=== PATIENT | female | born 1980 | race African-American/Black ===

== ENCOUNTER 2020-11-09 10:34 | Emergency (ER) | payer SELFPAY ==
[~2020-11-09] VITALS: Ht 162.6 cm; Wt 61.2 kg
[2020-11-09] MEDS ORDERED: QUEtiapine 200mg tab ORAL SCH (10:45)
[2020-11-09] MEDS ORDERED: Haloperidol 5mg/ml Inj IM ONE (11:15)
[2020-11-09] MEDS ORDERED: LORazepam Inj 2mg/ml 1ml IM ONE (11:15)
--- NOTE | 2020-11-09 11:19 | Emergency Room Report ---
History of Present Illness General Chief Complaint: Behavioral Complaint Present Illness HPI 41-year-old female brought in for psychiatric evaluation. Patient was on the street holding a fluorescent bulb swinging it at passersby. Patient is upset rambling "my is a crack it and keeps stealing my Seroquel." Patient says that she normally takes Seroquel but has not taken it in several weeks. At this time denies any drugs or alcohol and has no other complaints at this time. Allergies: Coded Allergies: UNABLE TO ASSESS (Unverified , 11/09/20) pt behavoiral COVID-19 Screening Contact w/high risk pt: No Experienced COVID-19 symptoms?: No COVID-19 Testing performed FOREPART REDUCER: No Patient History Last Menstrual Period: unk Now: No Review of Systems All Other Systems: negative except mentioned in HPI Physical Exam Vital Signs Date Time Temp Pulse Resp B/P (MAP) Pulse Ox O2 Delivery O2 Flow Rate FiO2 11/09/20 10:26 98.4 86 16 132/78 (96) 99 Room Air Sp02 EP Interpretation: reviewed, normal General Appearance: no apparent distress, alert, non-toxic Head: normocephalic, atraumatic Eyes: bilateral eye normal inspection, bilateral eye PERRL ENT: hearing grossly normal, normal pharynx, no angioedema, normal voice Neck: full range of motion, supple/symm/no masses Respiratory: chest non-tender, lungs clear, normal breath sounds, speaking full sentences Cardiovascular #1: regular rate, rhythm, no edema Cardiovascular #2: 2+ carotid (R), 2+ carotid (L), 2+ radial (R), 2+ radial (L), 2+ dorsalis pedis (R), 2+ dorsalis pedis (L) Gastrointestinal: normal bowel sounds, non tender, soft, non-distended, no guarding, no rebound Rectal: deferred Genitourinary: normal inspection, no CVA tenderness Musculoskeletal: back normal, normal range of motion, gait/station normal, non- tender Neurologic: alert, motor strength/tone normal, oriented x3, sensory intact, responsive, speech normal Psychiatric: other - Anxious appearing, rambling but is redirectable and answers questions appropriately Lymphatic: no adenopathy Medical Decision Making Diagnostic Impression: Primary Impression: Behavioral disorder Additional Impression: Amphetamine abuse ER Course Laboratory Tests Test 11/09/20 12:25 White Blood Count 10.0 K/UL (4.8-10.8) Red Blood Count 5.45 M/UL (4.20-5.40) H Hemoglobin 14.7 G/DL (12.0-16.0) Hematocrit 47.2 % (37.0-47.0) H Mean Corpuscular Volume 87 FL (80-99) Mean Corpuscular Hemoglobin 27.0 PG (27.0-31.0) Mean Corpuscular Hemoglobin Concent 31.1 G/DL (32.0-36.0) L Red Cell Distribution Width 12.7 % (11.6-14.8) Platelet Count 342 K/UL (150-450) Mean Platelet Volume 6.7 FL (6.5-10.1) Neutrophils (%) (Auto) 70.4 % (45.0-75.0) Lymphocytes (%) (Auto) 19.0 % (20.0-45.0) L Monocytes (%) (Auto) 9.1 % (1.0-10.0) Eosinophils (%) (Auto) 0.1 % (0.0-3.0) Basophils (%) (Auto) 1.3 % (0.0-2.0) Sodium Level 143 MMOL/L (136-145) Potassium Level 3.9 MMOL/L (3.5-5.1) Chloride Level 100 MMOL/L (98-107) Carbon Dioxide Level 16 MMOL/L (21-32) L Anion Gap 27 mmol/L (5-15) H Blood Urea Nitrogen 31 mg/dL (7-18) H Creatinine 1.2 MG/DL (0.55-1.30) Estimated Glomerular Filtration Rate > 60 mL/min (>60) Glucose Level 52 MG/DL (74-106) L Calcium Level 10.9 MG/DL (8.5-10.1) H Total Bilirubin 0.9 MG/DL (0.2-1.0) Aspartate Amino Transferase (AST) 48 U/L (15-37) H Alanine Aminotransferase (ALT) 45 U/L (12-78) Alkaline Phosphatase 101 U/L (46-116) Total Protein 10.9 G/DL (6.4-8.2) H Albumin 5.0 G/DL (3.4-5.0) Globulin 5.9 g/dL Albumin/Globulin Ratio 0.8 (1.0-2.7) L Salicylates Level 2.4 ug/mL (2.8-20) L Urine Opiates Screen Negative (NEGATIVE) Acetaminophen Level < 2 MCG/ML (10-30) L Urine Barbiturates Screen Negative (NEGATIVE) Phencyclidine (PCP) Screen Negative (NEGATIVE) Urine Amphetamines Screen Positive (NEGATIVE) H Urine Benzodiazepines Screen Negative (NEGATIVE) Urine Cocaine Screen Negative (NEGATIVE) Urine Marijuana (THC) Screen Negative (NEGATIVE) Serum Alcohol < 3 mg/dL 41-year-old female here with psychotic behavior. Patient was acting erratically and screaming obscenities at staff in the emergency department. She threatened to kill multiple nurses. Placed on 5150 hold by police. She was given Haldol and Ativan intramuscular injection and was resting soundly throughout the rest of her stay in the emergency department. Drug screen positive for amphetamines. Awaiting psychiatric clearance for possible placement. Last Vital Signs Date Time Temp Pulse Resp B/P (MAP) Pulse Ox O2 Delivery O2 Flow Rate FiO2 11/09/20 10:37 86 16 Room Air 11/09/20 10:26 98.4 132/78 (96) 99 Duane Bell M.D. Nov 09, 2020 11:19
[2020-11-09 12:48] LABS: BASOPHILS % (AUTO) 1.3 % (0.0-2.0); EOSINOPHILS % (AUTO) 0.1 % (0.0-3.0); HEMATOCRIT 47.2 % (37.0-47.0); HEMOGLOBIN 14.7 G/DL (12.0-16.0); MEAN CORPUSCULAR VOLUME 87 FL (80-99); MONOCYTES % (AUTO) 9.1 % (1.0-10.0); NEUTROPHILS % (AUTO) 70.4 % (45.0-75.0); PLATELET COUNT 342 K/UL (150-450); RED BLOOD COUNT 5.45 M/UL (4.20-5.40); RED CELL DISTRIBUTION WIDTH 12.7 % (11.6-14.8)
[2020-11-09 12:58] LABS: ANION GAP 27 mmol/L (5-15); BLOOD UREA NITROGEN 31 mg/dL (7-18); CALCIUM 10.9 MG/DL (8.5-10.1); CARBON DIOXIDE 16 MMOL/L (21-32); CHLORIDE 100 MMOL/L (98-107); CREATININE 1.2 MG/DL (0.55-1.30); POTASSIUM 3.9 MMOL/L (3.5-5.1); SODIUM 143 MMOL/L (136-145)
[2020-11-09 13:02] LABS: ALANINE AMINOTRANSFERASE 45 U/L (12-78); ALBUMIN/GLOBULIN RATIO 0.8 (1.0-2.7); ALKALINE PHOSPHATASE 101 U/L (46-116); ASPARTATE AMINO TRANSFERASE 48 U/L (15-37); BILIRUBIN,TOTAL 0.9 MG/DL (0.2-1.0)
[2020-11-09 13:25] VITALS: BP 100/60
[2020-11-09 15:15] VITALS: BP 114/65
[2020-11-09 17:09] LABS: APPEARANCE,URINE SLIGHTLY CLOUDY; BILIRUBIN, URINE NEGATIVE (NEGATIVE); COLOR,URINE PALE YELLOW; GLUCOSE, URINE (UA) NEGATIVE (NEGATIVE); KETONES,URINE 4+ (NEGATIVE); LEUKOCYTE ESTERASE ,URINE NEGATIVE (NEGATIVE); NITRITE,URINE NEGATIVE (NEGATIVE); PH,URINE 5 (4.5-8.0); PROTEIN,URINE 2+ (NEGATIVE); UROBILINOGEN,URINE NORMAL MG/DL (0.0-1.0)
[2020-11-09 18:39] VITALS: BP 102/68
[2020-11-09 19:46] VITALS: BP 112/68
[2020-11-09] MEDS ORDERED: cefTRIAXone 1 GM in NS 55 ML IVPB ONE (21:15)
[2020-11-09 21:19] VITALS: BP 115/72
[2020-11-09 23:52] VITALS: BP 115/73
[2020-11-10 01:16] VITALS: BP 118/76
[2020-11-10 03:52] VITALS: BP 116/75
[2020-11-10 06:42] VITALS: BP 125/76
[2020-11-10 07:34] VITALS: BP 113/75
[2020-11-10 11:30] VITALS: BP 109/73
[2020-11-10] MEDS ORDERED: NITROFURANTOIN100 M2 ORAL (14:35)
[2020-11-10] MEDS ORDERED: QUETIAPINE FUM200 MG ORAL (14:35)
--- NOTE | 2020-11-10 20:59 | Consultation ---
DATE OF CONSULTATION: 11/10/2020 CONSULTING PHYSICIAN: Drew Reynolds MD HISTORY OF PRESENT ILLNESS: Patient is a 40-year-old female with a history of drug use including methamphetamine, psychotic disorder who has been admitted to the hospital for suicidal ideation. During the evaluation, patient is denying any suicidal thoughts. She would like to be discharged. She denies any suicidal or homicidal ideation. Patient is denying any depressive symptoms, demands to be discharged. I offered her psychiatric hospitalization for disorganized speech. She is reluctant. She would like to be discharged. She is not meeting the criteria for 5150 hold as she is not an imminent danger to self or others. PAST PSYCHIATRIC HISTORY: She stated that she had psychiatric hospitalization. She is currently on no psychotropic medications. PAST MEDICAL HISTORY: None. ALLERGIES: No known drug allergies. SUBSTANCE ABUSE HISTORY: Significant for meth and other illicit drug use. SOCIAL HISTORY: Patient is homeless, unemployed. MENTAL STATUS EXAMINATION: Patient is alert, oriented times self, place, and situation. Mood is neutral. Affect is . Thought process disorganized. Thought content, no suicidal or homicidal ideation. Cognition is impaired. Insight and judgment is limited. ASSESSMENT: [place] I Methamphetamine abuse versus dependence. Substance-induced psychosis. [place] II Deferred. [place] III None. [place] IV Homelessness. [place] V 50 PLAN: 1. Patient is reluctant to take any antipsychotics. 2. Patient does not meet the criteria for 5150 or psychiatric hospitalization. Therefore, patient will be discharged with followup plan with a psychiatrist. Drew Reynolds M.D. DR: Davina JOB#: [id number] CC:
== END 2020-11-10 14:48 | disposition home or self-care (01) ==
LOC: EDBD 10:34 → EMR 12:27
DX: F91.9 Conduct disorder, unspecified (principal); F15.10 Other stimulant abuse, uncomplicated; N39.0 Urinary tract infection, site not specified
CPT/HCPCS: 36415; 80053; 80307; 81003; 81025; 85025; 87086; 96361; 96365; 96372; 99284; G0480; J7030